=== PATIENT | female | born 1935 | race Caucasian/White ===

== ENCOUNTER → 2017-01-24 | Outpatient (CLI) | payer MEDICARE, OTHER ==
[~2017-01-24] MED LIST: BENEFIBER1 PKT PO; BENIFIBER PO; CALCIUM + D 6001 TA1 PO; CENTRUM SILVER PO; COUMADIN PO; DETROL PO; LIPITOR PO; LOPRESSOR PO; PERCOCET 5/325 PO; PERVISION; SYNTHROID PO; TIKOSYN250 MCG PO; TOPROL XL PO; TRAMADOL HCL50 M1 PO; TYLENOL 325 MG PO; VICODIN 5/500 T1 TAB PO; XARELTO20 MG PO
== END | disposition home or self-care (01) ==
LOC: CSSDAY 13:19
DX: M81.0 Age-related osteoporosis without current pathological fracture (principal)
CPT/HCPCS: 82310; 96372; J0897